=== PATIENT | female | born 1990 | race American Indian/Alaskan Native ===

== ENCOUNTER 2022-04-27 21:45 | Emergency (ER) | payer OTHER ==
[2022-04-27] MEDS: Amoxicillin/Clavulanate K 875-125 MG Tab PO ONE (23:02)
== END 2022-04-27 23:13 | disposition home or self-care (01) ==
LOC: DL.ED 21:45
DX: J02.0 Streptococcal pharyngitis (principal); F17.210 Nicotine dependence, cigarettes, uncomplicated
CPT/HCPCS: 87081; 87430; 99283; A9270-GY

== ENCOUNTER 2022-07-18 22:45 | Emergency (ER) | payer OTHER | END 2022-07-18 23:27 | disposition home or self-care (01) | LOC: DL.ED 22:45 | DX: S80.01XA Contusion of right knee, initial encounter (principal); Z88.1 Allergy status to other antibiotic agents; Z91.018 Allergy to other foods; W10.8XXA Fall (on) (from) other stairs and steps, initial encounter; Y92.511 Restaurant or cafe as the place of occurrence of the external cause | CPT/HCPCS: 73562-RT; 99283 ==

== ENCOUNTER 2025-04-14 13:48 | Emergency (ER) | payer BC, MEDICAID ==
[2025-04-14] MEDS ORDERED: Take Home: Cephalexin 500 MG Cap, 6 Cap Pack PO ONE (14:59)
[2025-04-14] MEDS: Take Home: Azithromycin 250 MG, 2 Tab Pack PO ONE (15:15)
== END 2025-04-14 14:35 | disposition home or self-care (01) ==
LOC: DL.ED 13:48
DX: J03.90 Acute tonsillitis, unspecified (principal)
CPT/HCPCS: 87081; 87430; 99283; A9270